=== PATIENT | female | born 2000 | race Two or more races ===

== ENCOUNTER 2019-03-20 20:29 | Emergency (ER) | payer SELFPAY ==
[~2019-03-20] VITALS: Ht 104.1 cm; Wt 33.0 kg
[2019-03-20] MEDS ORDERED: SODIUM CHLORIDE 0.9% 600 ML IV ONE (20:55)
[2019-03-20] MEDS ORDERED: LEVETIRACETAM 500MG PREMIX 100 ML IV ONE (21:15)
[2019-03-20 21:40] LABS: BASOPHILS % 0.7 % (0.0-2.0); EOSINOPHILS % 1.2 % (0.0-5.0); HEMATOCRIT. 44.1 % (36.0-48.0); HEMOGLOBIN. 14.7 g/dL (12.0-16.0); LYMPHOCYTES % 32.5 % (20.0-50.0); MEAN CORPUSCULAR VOLUME 90.2 fL (81.0-99.0); MONOCYTES % 6.9 % (2.0-8.0); NEUTROPHILS % 58.7 % (40.0-76.0); RED BLOOD CELL COUNT 4.89 mill/uL (4.2-5.4); RED CELL DISTRIBUTION WIDTH 13.8 % (11.6-14.6)
[2019-03-20 21:45] LABS: CHLORIDE 110 mEq/L (98-107)
[2019-03-20 21:50] LABS: HCG SCREEN NEGATIVE
[2019-03-20 21:58] LABS: CARBAMAZEPINE < 0.5 ug/mL (4-12)
[2019-03-20 22:49] LABS: CLARITY URINE CLOUDY (CLEAR); COLOR URINE YELLOW (YELLOW); KETONES URINE NEGATIVE (NEGATIVE); LEUKOCYTE ESTERASE URINE 1+ (NEGATIVE); NITRITE URINE POSITIVE (NEGATIVE); OCCULT BLOOD URINE NEGATIVE (NEGATIVE); PROTEIN URINE NEGATIVE (NEGATIVE); SPECIFIC GRAVITY URINE 1.023 (1.005-1.030)
[2019-03-20] MEDS ORDERED: CEFTRIAXONE 1 G PREMIX 50 ML IV ONE (23:15)
[2019-03-20 23:58] VITALS: BP 136/69
== END 2019-03-20 23:59 | disposition home or self-care (01) ==
LOC: ER 20:29
DX: R56.9 Unspecified convulsions (principal); Q05.9 Spina bifida, unspecified; N39.0 Urinary tract infection, site not specified; F79 Unspecified intellectual disabilities; Z98.2 Presence of cerebrospinal fluid drainage device
CPT/HCPCS: 36415; 70450; 80053; 80156; 80165; 80185; 81003; 84703; 85025; 87086; 96365; 96375; 99284; J0696; J1953; J7030; Z7610